=== PATIENT | male | born 1995 | race Caucasian/White ===

== ENCOUNTER 2019-04-21 21:41 | Emergency (ER) | payer SELFPAY ==
--- NOTE | 2019-04-21 21:44 | PDOC ---
Rapid Medical Evaluation Time Seen by Provider: 04/21/19 21:43 Medical Evaluation: 04/21/19 21:44 I have performed a brief in-person evaluation of this patient. The patient presents with a chief complaint of: finger swelling Pertinent physical exam findings:stable and in NAD, non-focal I have ordered the following: xray The patient will proceed to the ED for further evaluation.
[2019-04-21 21:47] VITALS: BP 133/78; PULSE 78; TEMP 98.2; BMI 22.1
--- NOTE | 2019-04-21 22:29 | PDOC ---
*Physical Exam - Vital Signs Last Vital Signs Temp Pulse Resp BP Pulse Ox 98.2 F 78 18 133/78 100 04/21/19 21:45 04/21/19 21:45 04/21/19 21:45 04/21/19 21:45 04/21/19 21:45 Medical Decision Making - Medical Decision Making 04/21/19 22:29 Patient seen by the advanced practice provider under my direct supervision. Ancillary testing reviewed as necessary. I agree with plan as outlined by the advanced practice provider. Discharge - Discharge Information Problems reviewed: Yes Clinical Impression/Diagnosis: Finger infection Disposition: HOME - Additional Discharge Information Prescriptions: Cephalexin Monohydrate [Keflex -] 250 mg PO Q6H #40 capsule Sulfamethoxazole/Trimethoprim [Bactrim Ds -] 1 tab PO BID #20 tablet - Follow up/Referral - Patient Discharge Instructions Patient Printed Discharge Instructions: Cellulitis Additional Instructions: Apply warm compress to the area. Take cephalexin and Bactrim as prescribed Return to the emergency room if the redness is going up the arm or worsening or you develop fever. Come back in 2 days for a wound check Aplique chao compresa tibia al iraj. [facility] cephalexin and Bactrim winifred se lo hayan recetado. Regrese a la bola de emergencias si el enrojecimiento est subiendo por el brazo o si empeora o si tiene fiebre. Regrese en 2 vera para un chequeo de heridas - Post Discharge Activity Work/Back to School Note: Back to Work
--- NOTE | 2019-04-21 22:36 | PDOC ---
History of Present Illness - General Chief Complaint: Edema Stated Complaint: R FINGER SWOLLEN Time Seen by Provider: 04/21/19 21:43 History Source: Patient - History of Present Illness Initial Comments: 04/21/19 23:15 24 year old male with right index finger swelling and pain. patient unsure of insect bite. denies trauma or injury, able to move finger . + distal sensation. no redness or streaking noted 04/21/19 23:58 Last tetanus was 3 years ago Past History - Past Medical History Allergies/Adverse Reactions: Allergies Allergy/AdvReac Type Severity Reaction Status Date / Time No Known Allergies Allergy Verified 04/21/19 21:44 Home Medications: Ambulatory Orders Cephalexin Monohydrate [Keflex -] 250 mg PO Q6H #40 capsule 04/21/19 Sulfamethoxazole/Trimethoprim [Bactrim Ds -] 1 tab PO BID #20 tablet 04/21/19 COPD: No - Psycho Social/Smoking Cessation Hx Smoking History: Current some day smoker Number of Cigarettes Smoked Daily: 2 Information on smoking cessation initiated: No Review of Systems - Review of Systems Able to Perform ROS?: Yes Is the patient limited Hebrew proficient: No *Physical Exam - Vital Signs Last Vital Signs Temp Pulse Resp BP Pulse Ox 98.2 F 78 18 133/78 100 04/21/19 21:45 04/21/19 21:45 04/21/19 21:45 04/21/19 21:45 04/21/19 21:45 - Physical Exam General Appearance: Yes: Appropriately Dressed Extremity: positive: Normal Capillary Refill, Erythema (warm touch), Other ( right index finger swelling. no hand swelling. no streaking on wrist or arm) Neurologic: positive: Fully Oriented, Alert Medical Decision Making - Medical Decision Making Finger infection P: xray : no osteo Of seriesantibiotics return in 2 days for a wound check,. hand follow up discussed. strict return precautions reviewed with patient Discharge - Discharge Information Problems reviewed: Yes Clinical Impression/Diagnosis: Finger infection Disposition: HOME - Additional Discharge Information Prescriptions: Cephalexin Monohydrate [Keflex -] 250 mg PO Q6H #40 capsule Sulfamethoxazole/Trimethoprim [Bactrim Ds -] 1 tab PO BID #20 tablet - Follow up/Referral - Patient Discharge Instructions Patient Printed Discharge Instructions: Cellulitis Additional Instructions: Apply warm compress to the area. Take cephalexin and Bactrim as prescribed Return to the emergency room if the redness is going up the arm or worsening or you develop fever. Come back in 2 days for a wound check Aplique chao compresa tibia al iraj. [facility] cephalexin and Bactrim winifred se lo hayan recetado. Regrese a la bola de emergencias si el enrojecimiento est subiendo por el brazo o si empeora o si tiene fiebre. Regrese en 2 vera para un chequeo de heridas - Post Discharge Activity Work/Back to School Note: Back to Work
[2019-04-21] MEDS ORDERED: SULFAMETHOXAZOLE/TRIMETHOPRIM 800MG/160MG D.S. TABLET PO ONE (23:53)
[2019-04-21] MEDS ORDERED: CEPHALEXIN 250 MG/5 ML ORAL SUSPENSION PO ONE (23:53)
[2019-04-21] MEDS ORDERED: CEPHALEXIN MONOHYDRATE 500 MG CAPSULE (UD) ONE (23:55)
[2019-04-21] MEDS ORDERED: SULFAMETHOXAZOLE/TRIMETHOPRIM 800MG/160MG D.S. TABLET ONE (23:55)
== END 2019-04-22 00:05 | disposition home or self-care (01) ==
LOC: JER 21:41
DX: L08.89 Other specified local infections of the skin and subcutaneous tissue (principal); Z72.0 Tobacco use
CPT/HCPCS: 73140-TC-RT-FY; 99281-25

== ENCOUNTER 2019-04-22 23:06 | Emergency (ER) | payer SELFPAY ==
[2019-04-22 23:21] VITALS: BP 124/66; PULSE 98; TEMP 99; BMI 23.9
--- NOTE | 2019-04-23 01:05 | PDOC ---
History of Present Illness - General Chief Complaint: Pain Stated Complaint: HAND PAIN Time Seen by Provider: 04/22/19 23:50 History Source: Patient, Old Records Exam Limitations: No Limitations - History of Present Illness Initial Comments: 04/23/19 01:00 HISTORY OF PRESENT ILLNESS: Is a 24-year-old male denies medical history of presents emergency department for evaluation of worsening infection of the right index finger. Patient was seen and evaluated here yesterday noted to have a cellulitis to the right index finger. Patient was started on Keflex and Bactrim to treat the cellulitis patient was concerned that he has interval development of abscess which is spontaneously draining at this time. No recent travel or sick contacts. PAST MEDICAL HISTORY: Denies past medical history SURGICAL HISTORY: Denies ALLERGIES: No known drug allergies REVIEW OF SYSTEMS General/Constitutional: Denies fever or chills. Denies weakness, weight change. HEENT: Denies change in vision. Denies ear pain or discharge. Denies sore throat. Cardiovascular: Denies chest pain or shortness of breath. Respiratory: Denies cough, wheezing, or hemoptysis. Gastrointestinal: Denies nausea, vomiting, diarrhea or constipation. Denies rectal bleeding. Genitourinary: Denies dysuria, frequency, or change in urination. Musculoskeletal: See HPI Skin and breasts: See HPI Neurologic: Denies headache, vertigo, loss of consciousness, or loss of sensation. Psychiatric: Denies depression or anxiety. Endocrine: Denies increased thirst. Denies abnormal weight change. Hematologic/Lymphatic: Denies anemia, easy bleeding, or history of blood clots. Allergic/Immunologic: Denies hives or skin allergy. Denies latex allergy. PHYSICAL EXAM General Appearance: Well-appearing, appropriately dressed. No apparent distress , no intoxication. Respiratory/Chest: Lungs CTAB. No shortness of breath, chest tenderness, respiratory distress, accessory muscle use. No crackles, rales, rhonchi, stridor , wheezing, dullness Cardiovascular: RRR. S1, S2. No JVD, murmur, bradycardia, tachycardia. Vascular Pulses: Dorsalis-Pedis (R): 2+, Dorsalis-Pedis (L): 2+ Gastrointestinal/Abdominal: Normal bowel sounds. Abdomen soft, non-distended. No tenderness or rebound tenderness. No organomegaly, pulsatile mass, guarding, hernia, hepatomegaly, splenomegaly. Lymphatic: No adenopathy, tenderness. Musculoskeletal/Extremities: FROM of all extremities. Pelvis Stable. No CVA tenderness. No tenderness to extremities, pedal edema, erythema or deformity. Interval development of abscess to the medial aspect of the proximal phalanx of the right index finger. Spontaneously draining. Capillary refill is less than 2 seconds. Full sensation distal to infection noted. Integumentary: See musculoskeletal assessment Neurologic: leveler II-XII intact. Fully oriented, alert. Appropriate mood/affect. Motor strength 5/5. No appreciable EOM palsy, facial droop or sensory deficit. 04/23/19 01:07 Past History - Past Medical History Allergies/Adverse Reactions: Allergies Allergy/AdvReac Type Severity Reaction Status Date / Time No Known Allergies Allergy Verified 04/22/19 23:14 Home Medications: Ambulatory Orders NK [No Known Home Medication] 04/22/19 COPD: No - Psycho Social/Smoking Cessation Hx Smoking History: Never smoked Have you smoked in the past 12 months: No Number of Cigarettes Smoked Daily: 2 Information on smoking cessation initiated: No Hx Alcohol Use: No Drug/Substance Use Hx: No *Physical Exam - Vital Signs Last Vital Signs Temp Pulse Resp BP Pulse Ox 99.0 F 98 H 18 124/66 97 04/22/19 23:15 04/22/19 23:15 04/22/19 23:15 04/22/19 23:15 04/22/19 23:15 ED Treatment Course - RADIOLOGY Radiology Studies Ordered: Category Date Time Status HAND- RIGHT [RAD] Stat Radiology 04/23/19 00:21 Taken Medical Decision Making - Medical Decision Making 04/23/19 01:05 A/P: 24-year-old male for reevaluation of right index finger infection Interval formation of spontaneously draining abscess to the medial proximal phalanx of the right index finger. Full sensation intact Capillary refill is less than 2 seconds Full range of motion noted No pain present to the affected site Low risk for compartment syndrome Wound is spontaneously draining. I was able to express a scant amount of bloody and purulent drainage. Culture collected. Right hand x-ray as read by me: No bony erosion present. No foreign body noted. Soft tissue swelling present to the medial aspect of the proximal phalanx of the first digit. Patient discharged home with instructions to follow-up with hand surgeon for continued evaluation and potential I&D of abscess. 04/23/19 01:09 Discharge - Discharge Information Problems reviewed: Yes Clinical Impression/Diagnosis: Finger infection Condition: Fair Disposition: HOME - Admission No - Follow up/Referral Referrals: Levon Das MD [Staff Physician] - Kaiden White MD [Staff Physician] - - Patient Discharge Instructions Additional Instructions: Continue previously prescribed antibiotics. You have been given the number for a hand specialist. Call to schedule an appointment as soon as possible. Return to the emergency department immediately for numbness or tingling of your finger, discoloration of your fingertip, inability to move your right index finger or for red streaks extending up your hand and forearm. Thank you very much for choosing us to provide your emergent health care needs. Contine con los antibiticos previamente recetados. Se le rowe dado el nmero de un especialista en mano. Llame para programar chao jose lo antes posible. Regrese al departamento de emergencias de inmediato para sentir entumecimiento u hormigueo en herrera dedo, decoloracin de la punta de herrera dedo, incapacidad para funeral car chauffeur herrera dedo ndice derecho o agustina gonzalez que se extiendan por herrera mano y antebrazo. Muchas mansoor por elegirnos para satisfacer jennifer necesidades de atencin mdica de emergencia. - Post Discharge Activity Work/Back to School Note: Back to Work
--- NOTE | 2019-04-24 12:57 | PDOC ---
Patient Follow-up (Call Back) - Post ED Follow - Up Condition at time of discharge: Fair Disposition at time of original discharge: HOME Reason for Call Back: Abnwl. Microbiology (Pt with MRSA on wound culture. He is already being treated appropriately treated with bactrim and keflex. No further action is needed.)
== END 2019-04-23 01:06 | disposition home or self-care (01) ==
LOC: JER 23:06
DX: L08.9 Local infection of the skin and subcutaneous tissue, unspecified (principal)
CPT/HCPCS: 73130-TC-RT-FY; 87070; 87186; 87205; 99281-25